=== PATIENT | male | born 1955 | race Caucasian/White ===

== ENCOUNTER → 2022-09-30 09:53 | Outpatient (BNVA) | payer MEDICARE, SELFPAY | PROVIDERS: PCP Internal Medicine; Visit Provider Nurse Practitioner Family | DX: F07.81 Postconcussional syndrome (principal); F09 Unspecified mental disorder due to known physiological condition; R51.9 Headache, unspecified; R42 Dizziness and giddiness | CPT/HCPCS: 99202 ==

== ENCOUNTER → 2022-12-28 11:02 | Outpatient (BNVA) | payer MEDICARE, SELFPAY | PROVIDERS: PCP Internal Medicine; Visit Provider Nurse Practitioner Family | DX: R51.9 Headache, unspecified (principal); R42 Dizziness and giddiness | CPT/HCPCS: 99212 ==

== ENCOUNTER → 2023-01-05 09:45 | Outpatient (BNVA) | payer MEDICARE, SELFPAY | PROVIDERS: PCP Internal Medicine; Visit Provider Surgery | DX: R51.9 Headache, unspecified (principal); D17.0 Benign lipomatous neoplasm of skin and subcutaneous tissue of head, face and neck | CPT/HCPCS: 99202 ==

== ENCOUNTER 2023-02-17 10:26 | Outpatient (REF) | payer MEDICARE, SELFPAY ==
--- NOTE | ~2023-02-17 | MR_ITS ---
EXAMINATION: MR angio head wo con, MR head/brain wo/w con CLINICAL INFORMATION: Giant cell arteritis COMPARISON: Outside MRI of the brain without contrast 07/05/2022 TECHNIQUE: Multiplanar multisequence MR imaging of the brain was obtained without and following the administration of 10 mL Gadavist intravenous contrast. Noncontrast [id number] MRA of the head was also performed. FINDINGS: There is no acute infarct on diffusion-weighted imaging. There is no intracranial hemorrhage on iron-sensitive imaging. No extra-axial collection or mass effect/herniation. Patchy periventricular, deep white matter, and brainstem T2 FLAIR hyperintensities consistent with moderate underlying microangiopathy. No hydrocephalus. Mild generalized cerebral volume loss with commensurate sulcal and ventricular prominence. No abnormal parenchymal or extra-axial enhancement. The major flow voids at the skull base are preserved. The midline structures are normal. The cerebellar tonsils are normally positioned. 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 Slight malalignment of the right atlantooccipital joint with posterior subluxation of the condyle relative to the C1 lateral mass, likely reflecting mild rotary subluxation. Marrow signal is within normal limits. T1 hyperintense lesion measuring up to 1.6 cm involving the subgaleal soft tissues of the left lateral supraorbital region (series 7 image 16) with saturation on fat saturated sequence. No signal abnormality within the paranasal sinuses or within the mastoid air cells. Normal flow-related signal within the anterior circulation without evidence of focal stenosis or occlusion of the intradural internal carotid, middle cerebral, or anterior cerebral arteries. Normal flow-related signal within the posterior circulation without evidence of focal stenosis or occlusion of the intradural vertebral, basilar, superior cerebellar, or posterior cerebral arteries. configuration of the right PATCH SANDER complex. No demonstrated intradural aneurysms. MR/MR head/brain wo/w con IMPRESSION: 1. No acute intracranial abnormality or abnormal intracranial enhancement. 2. Moderate chronic white matter microangiopathy and mild generalized cerebral volume loss. 3. Normal MRA of the brain. 4. Left supraorbital soft tissue lesion measuring up to 1.6 cm compatible with a lipoma 5. 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
--- NOTE | ~2023-02-17 | MR_ITS ---
EXAMINATION: MR angio head wo con, MR head/brain wo/w con CLINICAL INFORMATION: Giant cell arteritis COMPARISON: Outside MRI of the brain without contrast 07/05/2022 TECHNIQUE: Multiplanar multisequence MR imaging of the brain was obtained without and following the administration of 10 mL Gadavist intravenous contrast. Noncontrast [id number] MRA of the head was also performed. FINDINGS: There is no acute infarct on diffusion-weighted imaging. There is no intracranial hemorrhage on iron-sensitive imaging. No extra-axial collection or mass effect/herniation. Patchy periventricular, deep white matter, and brainstem T2 FLAIR hyperintensities consistent with moderate underlying microangiopathy. No hydrocephalus. Mild generalized cerebral volume loss with commensurate sulcal and ventricular prominence. No abnormal parenchymal or extra-axial enhancement. The major flow voids at the skull base are preserved. The midline structures are normal. The cerebellar tonsils are normally positioned. 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 Slight malalignment of the right atlantooccipital joint with posterior subluxation of the condyle relative to the C1 lateral mass, likely reflecting mild rotary subluxation. Marrow signal is within normal limits. T1 hyperintense lesion measuring up to 1.6 cm involving the subgaleal soft tissues of the left lateral supraorbital region (series 7 image 16) with saturation on fat saturated sequence. No signal abnormality within the paranasal sinuses or within the mastoid air cells. Normal flow-related signal within the anterior circulation without evidence of focal stenosis or occlusion of the intradural internal carotid, middle cerebral, or anterior cerebral arteries. Normal flow-related signal within the posterior circulation without evidence of focal stenosis or occlusion of the intradural vertebral, basilar, superior cerebellar, or posterior cerebral arteries. configuration of the right STATION MECHANIC complex. No demonstrated intradural aneurysms. MR/MR angio head wo con IMPRESSION: 1. No acute intracranial abnormality or abnormal intracranial enhancement. 2. Moderate chronic white matter microangiopathy and mild generalized cerebral volume loss. 3. Normal MRA of the brain. 4. Left supraorbital soft tissue lesion measuring up to 1.6 cm compatible with a lipoma 5. 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
== END 2023-02-17 10:27 | disposition home or self-care (01) ==
LOC: HO.MRI 10:26
PROVIDERS: PCP Internal Medicine; Visit Provider Nurse Practitioner Family
DX: M31.6 Other giant cell arteritis (principal)
CPT/HCPCS: 70544; 70553; A9585

== ENCOUNTER 2023-04-13 13:00 | Outpatient (AMB) | payer MEDICARE, SELFPAY ==
--- NOTE | 2023-04-13 13:06 | MHC.OFFVIS ---
Intake Vital Signs 04/13/23 13:07 Height 5 ft 10 in Weight 215 lb BMI 30.8 BP 138/80 Blood Pressure Location Rt brachial Position Sitting Pulse 82 Pulse Source Pulse Oximeter Pulse Oximetry (%) 97 Oxygen Delivery Method Room Air Intake Visit Reasons: 3m follow up Headaches-Confirmed Intake Note: patient presents for follow up headaches. patient states still have them but not as severe. more on the right side, same area over my eyes and across the right side. Allergies No Known Allergies Allergy (Verified 04/13/23 13:10) Medication List - Last Reconciled 04/13/23 by OBDULIA Guadarrama acetaminophen (Tylenol Extra Strength) 500 mg PO Q6H PRN aspirin (Jennifer Low Dose Aspirin) 81 mg PO DAILY atorvastatin 10 mg PO DAILY hydrochlorothiazide 25 mg PO DAILY lisinopril 30 mg PO DAILY HPI HPI Comments History of Present Illness Details 67-yr-old male presents for f/u visit, accompanied by his . Pt reports his right frontal headache is much better. He does still have a milder headache. May need to take a Tylenol qd- bid. The left forehead lipoma is no longer bothersome. Today he reports has had 4 episodes of the last 2 yrs. The last occurring yesterday. He has taken 2-3 puffs of marijuana while sitting, when all of a sudden, he stares off, turns flushed, becomes non-responsive but no LOC, like he is frozen. 3/4 of the episodes have been a/w urinary incontinence. The episode lasts 4-5 minutes. Afterwards, he has some difficulty speaking x's 5-7 minutes. Then the rest of the day and the following day he feels drained. Yesterday, they called the ambulance- his vitals were NL, orthostatics were NL, so he stayed home. He previously did have an ER eval afetr the episode and work-up was normal. He believes the episodes have been triggered by increased stress- for instance this past week, he found out 2 of his friends are on hospice and was discussing this with a friend when the episode happened. He usually smokes marijuana 2 hits 3-4 times a day for management of chronic pain. MR/MR head/brain wo/w con and MRA head: IMPRESSION: 1. No acute intracranial abnormality or abnormal intracranial enhancement. 2. Moderate chronic white matter microangiopathy and mild generalized cerebral volume loss. 3. Normal MRA of the brain. 4. Left supraorbital soft tissue lesion measuring up to 1.6 cm compatible with a lipoma 5. 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 [facility] Medical History (Updated 04/16/23 @ 20:48 by OBDULIA Guadarrama) Lipoma of forehead Surgical History H/O angioplasty History of toe surgery H/O wrist surgery History of shoulder surgery Family History Mother Myocardial infarction Pacemaker Father Hypertension Prostate cancer Social History Alcohol intake: current Alcohol intake frequency: a few times a month Patient Tobacco Use Status: Current everyday Tobacco user Substance Use Type: Marijuana Review of Systems Const All systems reviewed & are unremarkable except as noted in HPI and below Physical Exam Vital Signs: Last Vital Signs Pulse 82 04/13/23 13:07 BP 138/80 04/13/23 13:07 Pulse Ox 97 04/13/23 13:07 Oxygen Delivery Method Room Air 04/13/23 13:07 BMI result Body Mass Index 30.8 Const General: cooperative and no acute distress Orientation/consciousness: patient oriented x3 HEENT Head: Yes normocephalic Resp Effort & Inspection: normal respiratory effort and able to speak in complete sentences Neuro General: patient oriented x3, gait normal and CN's II-XI intact bilaterally Cognition (Neuro): normal cognition Motor exam (neuro): 5/5 motor strength present throughout Psych Appearance: grossly normal Mental Status: mental status grossly normal Speech and movement: Normal speech and movement present Affect: normal affect Attitude: cooperative Thought process: Normal thought process present Thought content: Normal thought content present Insight: Good insight present (Psych) Judgement: Good judgement present (Psych) Assessment & Plan Assessment & Plan (1) Altered mental status: Code(s): R41.82 - Altered mental status, unspecified (2) Postconcussive syndrome: Comment: a/w headache, photophobia, dizziness, cognitive difficulties, and mood changes Code(s): F07.81 - Postconcussional syndrome Plan For post-concussive syndrome: May use Tylenol prn. For episodes of transient AMS a/w urinary incontinence and postictal fatigue: Reviewed brain MRI- Moderate chronic white matter microangiopathy and mild generalized cerebral volume loss. Check EEG to assess for any signs of cerebral epileptic activity or cerebral irritability. Will request cardiology evaluation through pt's cardiology office. In the mean time, pt is advised to NOT drive or engage in high risk activities, such as climbing ladders, water activities, etc. f/u upon review of above and in clinic in 3 months or sooner prn. Orders: Orders EEG electroencephalogram Today R41.82 - Altered mental status, unspecified Referrals Cardiology Referral R41.82 - Altered mental status, unspecified Coding Level of Care Code Est Pt Level 4 (52324) Diagnoses Altered mental status R41.82 Postconcussive syndrome F07.81
[2023-04-13 13:07] VITALS: BP 138/80; PULSE 82; O2SAT 97; BMI 30.8
== END 2023-04-13 14:01 | disposition home or self-care (01) ==
PROVIDERS: PCP Internal Medicine; Visit Provider Nurse Practitioner Family
DX: R41.82 Altered mental status, unspecified (principal); F07.81 Postconcussional syndrome
CPT/HCPCS: 99214

== ENCOUNTER → 2023-04-13 13:00 | Outpatient (BNVA) | payer MEDICARE, SELFPAY | PROVIDERS: PCP Internal Medicine; Visit Provider Nurse Practitioner Family | DX: R41.82 Altered mental status, unspecified (principal); F07.81 Postconcussional syndrome | CPT/HCPCS: 99212 ==

== ENCOUNTER 2023-07-27 11:30 | Outpatient (AMB) | payer MEDICARE, SELFPAY ==
--- NOTE | 2023-07-27 11:37 | MHC.OFFVIS ---
Intake Vital Signs 07/27/23 11:46 BP 116/82 Blood Pressure Location Rt brachial Position Sitting Pulse 74 Pulse Source Pulse Oximeter Pulse Oximetry (%) 98 Oxygen Delivery Method Room Air Intake Visit Reasons: 4 mnts f/u appt-LVM Intake Note: Patient presents for 4 month follow up. he did a three day eeg he's here for the results Allergies No Known Allergies Allergy (Verified 07/27/23 11:44) HPI HPI Comments History of Present Illness Details 68-yr-old male presents for f/u visit, accompanied by his . Pt denies any significant interval medical changes. He has not had a syncopal event since May. He has not had an significant stressors since then. He has not smoked marijuana- except briefly during the EEG to see if that would evoke an attack. The EEG was normal- even during the time when he did smoke marijuana. He still can have head numbness. He is worried if any of his issues will increase his risk for dementia as his father had dementia. [facility] Medical History (Updated 06/28/23 @ 19:08 by OBDULIA Guadarrama) Lipoma of forehead Surgical History H/O angioplasty History of toe surgery H/O wrist surgery History of shoulder surgery Family History Mother Myocardial infarction Pacemaker Father Hypertension Prostate cancer Social History Alcohol intake: current Alcohol intake frequency: a few times a month Patient Tobacco Use Status: Current everyday Tobacco user Substance Use Type: Marijuana Review of Systems Const All systems reviewed & are unremarkable except as noted in HPI and below Physical Exam Vital Signs: Last Vital Signs Pulse 74 07/27/23 11:46 BP 116/82 07/27/23 11:46 Pulse Ox 98 07/27/23 11:46 Oxygen Delivery Method Room Air 07/27/23 11:46 Const General: cooperative and no acute distress Orientation/consciousness: patient oriented x3 HEENT Head: Yes normocephalic Resp Effort & Inspection: normal respiratory effort and able to speak in complete sentences Neuro General: patient oriented x3, gait normal and CN's II-XI intact bilaterally Cognition (Neuro): normal cognition Motor exam (neuro): 5/5 motor strength present throughout Psych Appearance: grossly normal Mental Status: mental status grossly normal Speech and movement: Normal speech and movement present Affect: normal affect Attitude: cooperative Thought process: Normal thought process present Thought content: Normal thought content present Insight: Good insight present (Psych) Judgement: Good judgement present (Psych) Assessment & Plan Assessment & Plan (1) Postconcussive syndrome: Comment: a/w headache, photophobia, dizziness, cognitive difficulties, and mood changes Code(s): F07.81 - Postconcussional syndrome (2) Syncope: Code(s): R55 - Syncope and collapse (3) Altered mental status: Code(s): R41.82 - Altered mental status, unspecified (4) Headache: Code(s): R51.9 - Headache, unspecified Plan For post-concussive syndrome: May use Tylenol prn. ? For episodes of transient AMS a/w urinary incontinence and postictal fatigue: Brain MRI- Moderate chronic white matter microangiopathy and mild generalized cerebral volume loss. Baseline and 72 hr ambulatory EEG- no epileptic avtivity observed. Reviewed cardiology eval- did not feel that these episodes were cardiogenic. Discussed that although the EEGs have been normal, it is possible that these syncopal episodes can still be seizure activity- likely provoked by significant life stressor and associated lack of sleep. Pt would like to try continue to abstain from marijuana as he feels it could have triggered these attacks. I am less suspicious that the marijuana use is triggering these attacks- more likely it is coincidence that when stressed he has used marijuana as a coping strategy. Also encouraged pt to consider psychotherapy or finding alternative coping strategies for stress management. Discussed that if he has another episode, he should trial AED tx. He will update me w/ any new/worrisome s/s. Discussed that he should NOT drive or engage in high risk activities x's 6 months after any syncopal events, such as climbing ladders, water activities, etc. ? f/u in 3 months or sooner prn. Coding Level of Care Code Est Pt Level 4 (38701) Diagnoses Postconcussive syndrome F07.81 Syncope R55 Altered mental status R41.82 Headache R51.9
[2023-07-27 11:46] VITALS: BP 116/82; PULSE 74; O2SAT 98
== END 2023-07-27 12:28 | disposition home or self-care (01) ==
PROVIDERS: PCP Internal Medicine; Visit Provider Nurse Practitioner Family
DX: G44.309 Post-traumatic headache, unspecified, not intractable (principal); F07.81 Postconcussional syndrome; R55 Syncope and collapse; R41.82 Altered mental status, unspecified
CPT/HCPCS: 99214

== ENCOUNTER → 2023-07-27 11:30 | Outpatient (BNVA) | payer MEDICARE, SELFPAY | PROVIDERS: PCP Internal Medicine; Visit Provider Nurse Practitioner Family | DX: F07.81 Postconcussional syndrome (principal); R55 Syncope and collapse; R41.82 Altered mental status, unspecified; R51.9 Headache, unspecified | CPT/HCPCS: 99212 ==

== ENCOUNTER 2024-05-16 13:48 | Outpatient (REF) | payer MEDICARE, SELFPAY ==
--- NOTE | ~2024-05-16 | CT_ITS ---
EXAMINATION: CT HEAD WITHOUT CONTRAST CLINICAL INFORMATION: Concussion with loss of consciousness. COMPARISON: No prior CT exam. MRI head 02/17/2023. TECHNIQUE: Contiguous axial imaging was performed from the skull base to vertex without intravenous administration of contrast. This CT examination was performed using dose optimization techniques as appropriate, variously including the following: *Automated exposure control *Adjustment of mA and/or kV according to patient size (this includes techniques or standardized protocols for targeted exams where dose is matched to indication/reason for exam; i.e. extremities or head) *Use of iterative reconstruction technique DLP: 890 mGy-cm FINDINGS: There is no evidence of intracranial hemorrhage or extra-axial fluid collection. There is no mass effect, or edema. No CT evidence of acute territorial infarct. Ventricles, sulci, and cisterns are mildly diffusely prominent, consistent with age appropriate involutional changes. No hydrocephalus. No midline shift. Several old lacunar type infarcts present in the bilateral gangliocapsular regions. Mild to moderate diffuse and patchy hypodensities in the supratentorial white matter, consistent with [id number] small vessel ischemic changes. Normal sella. Atheromatous calcification of the bilateral carotid siphons and V4 segments vertebral arteries bilaterally. Venous sinuses are mildly hyperattenuating, likely reflecting hemoconcentration. Globes and orbital contents image normally. Extra cranial soft tissues demonstrate a small supraorbital left scalp lipoma. They are otherwise normal. The paranasal sinuses, mastoid air cells, and tympanic cavities are normally aerated. No fractures or suspicious bony abnormalities. Mild rotatory subluxation C1-C2 again noted. CT/CT head/brain wo IV con IMPRESSION: 1. No acute intracranial abnormalities. 2. Age-related involutional changes, and mild to moderate changes of small vessel ischemia. 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 3. Mild rotatory subluxation C1-2 again noted. Electronically signed by: Genaro Box MD 05/31/2024 12:53 PM [facility]
== END 2024-05-16 13:49 | disposition home or self-care (01) ==
LOC: HO.CT 13:48
PROVIDERS: PCP Internal Medicine; Visit Provider Nurse Practitioner Family
DX: S06.0XAA Concussion with loss of consciousness status unknown, initial encounter (principal)
CPT/HCPCS: 70450

== ENCOUNTER → 2024-05-16 14:26 | Outpatient (BNV) | payer MEDICARE, SELFPAY | PROVIDERS: PCP Internal Medicine; Visit Provider Radiology Diagnostic Radiology | DX: S06.0XAA Concussion with loss of consciousness status unknown, initial encounter (principal) | CPT/HCPCS: 70450 ==

== ENCOUNTER 2024-06-07 14:22 | Outpatient (AMB) | payer MEDICARE, SELFPAY ==
--- NOTE | 2024-06-07 14:23 | A.OFFVIS_ITS ---
Vital Signs 06/07/24 14:24 Height 5 ft 10 in Weight 224 lb BMI 32.1 BP 132/72 Blood Pressure Location Rt brachial Position Sitting Intake Visit Reasons: f/u due to pt feeling exhausted & disoriented Intake Note: Patient presents for follow up. patient fell again,lost his balance. Allergies No Known Allergies Allergy (Verified 06/07/24 14:26) HPI Comments Details: Right-handed 68-yr-old male presents for f/u urgent visit, accompanied by his . Pt reports he had been doing better, his energy, concentration was better following the concussion fro the fall in Mar 2022. Then on Apr 042023, he had a fall where he was bending over and tripped on his feet, causing him to fall and roll over- strike his left temporal region, right shoulder. He denies LOC, but could not get up x's 15 minutes or so. Since, he has had headaches- which he states he is managing ok w/ Tylenol bid prn. We did have pt undergo head CT w/o- which did not show any active bleeds. He is more concerned that he is having more cognitive difficulties, difficulty concentrating, fatigue/poor endurance. He feels that he cannot complete his usual daily activities without being exhausted and confused. He notes that he is easily distracted- say in the morning when he making his coffee, if the cat distracts him- he feeds the cat but then forgets to put the water in his case maker. He has also noticed since the fall, for the 1st hour after waking up, he will notice a RUE tremor when drinking his coffee but then it subsides. He has a h/o cervical tightness and crepitus when turning his head- started after the Mar 2022 fall/concussion. He has a h/o bilateral carpal tunnel repair. Denies hand numbness/tingling. He has not had a syncopal event since May 2023- notes he has stopped smoking marijuana. CT/CT head/brain wo IV con IMPRESSION: 1. No acute intracranial abnormalities. 2. Age-related involutional changes, and mild to moderate changes of small vessel ischemia. 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 Atheromatous calcification of the bilateral carotid siphons and V4 segments vertebral arteries bilaterally. 3. Mild rotatory subluxation C1-2 again noted. [facility] Medical History Lipoma of forehead Surgical History H/O angioplasty History of toe surgery H/O wrist surgery History of shoulder surgery Family History Mother Myocardial infarction Pacemaker Father Hypertension Prostate cancer Social History Alcohol intake: current Alcohol intake frequency: a few times a month Patient Tobacco Use Status: Current everyday Tobacco user Substance Use Type: Marijuana Physical Exam Vital Signs: Last Vital Signs BP 132/72 06/07/24 14:24 BMI result Body Mass Index 32.1 Const General: cooperative and no acute distress Orientation/consciousness: patient oriented x3 HEENT Head: Yes normocephalic Resp Effort & Inspection: normal respiratory effort and able to speak in complete sentences Neuro Other: Photophobic No visible rest tremor. General: patient oriented x3, gait normal and CN's II-XI intact bilaterally Cranial nerves: Yes CN's II-XII intact bilaterally Cognition (Neuro): normal cognition Motor exam (neuro): 5/5 motor strength present throughout Coordination: [id number] test normal Psych Appearance: grossly normal Mental Status: mental status grossly normal Speech and movement: Normal speech and movement present Affect: normal affect Attitude: cooperative Thought process: Normal thought process present Thought content: Normal thought content present Insight: Good insight present (Psych) Judgement: Good judgement present (Psych) Assessment & Plan Assessment & Plan (1) Concussion: Comment: s/p fall on Apr 042023- w/ residual fatigue, cognitive difficulties, am tremor Code(s): S06.0XAA - Concussion with loss of consciousness status unknown, initial encounter Category: Medical (2) Syncope: Code(s): R55 - Syncope and collapse Category: Medical (3) Altered mental status: Code(s): R41.82 - Altered mental status, unspecified Category: Medical (4) Headache: Code(s): R51.9 - Headache, unspecified Category: Medical Plan Reviewed recent head CT- No acute findings. 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 Atheromatous calcification of the bilateral carotid siphons and V4 segments vertebral arteries bilaterally. Stable Mild rotatory subluxation C1-2 again noted. Pt advsied to undergo f/u MR angio head w/o and neck w/wo to better appreciate burden of carotid and vertebral atherosclerosis burden in setting of gangliocapsular lacunar infarcts. Continue ASA, statin, lisinopril, HCTZ- BP normotensive. Futire considerations- sleep eval, cognitive tx. Monitor am tremor For new concussive syndrome: Resume Riboflavin 400mg qam Resume Magnesium- will try glycinate formulation at 200mg qhs- to minimize GI s/e's pt previously had w/ Mag Oxide 400mg qhs dose. May use Tylenol prn. ? For episodes of transient AMS a/w urinary incontinence and postictal fatigue: No further episodes since stopping marijuana. Will monitor. Brain MRI- Moderate chronic white matter microangiopathy and mild generalized cerebral volume loss. Baseline and 72 hr ambulatory EEG- no epileptic activity observed. Reviewed cardiology eval- did not feel that these episodes were cardiogenic. ? f/u in 1-2 months or sooner prn. Orders: Orders MR angio head wo con 06/07/24 I63.81 - Other cerebral infarction due to occlusion or stenosis of small artery MR angio neck wo/w con 06/07/24 I63.81 - Other cerebral infarction due to occlusion or stenosis of small artery Medications: New riboflavin (vitamin B2) 400 mg PO DAILY 30 days 30 tabs 6RF magnesium glycinate 100 - 200 mg (1 - 2 x 100 mg magnesium) PO BEDTIME 30 days 60 caps 0RF Coding Level of Care Code Est Pt Level 4 (02842) Diagnoses Concussion S06.0XAA Syncope R55 Altered mental status R41.82 Headache R51.9
[2024-06-07 14:24] VITALS: BP 132/72; BMI 32.1
== END 2024-06-07 15:26 | disposition home or self-care (01) ==
PROVIDERS: PCP Internal Medicine; Visit Provider Nurse Practitioner Family
DX: S06.0XAA Concussion with loss of consciousness status unknown, initial encounter (principal); R55 Syncope and collapse; R41.82 Altered mental status, unspecified; R51.9 Headache, unspecified
CPT/HCPCS: 99214

== ENCOUNTER → 2024-06-07 14:22 | Outpatient (BNVA) | payer MEDICARE, SELFPAY | PROVIDERS: PCP Internal Medicine; Visit Provider Nurse Practitioner Family | DX: S06.0XAD Concussion with loss of consciousness status unknown, subsequent encounter (principal); R55 Syncope and collapse; R41.82 Altered mental status, unspecified; R51.9 Headache, unspecified | CPT/HCPCS: 99212 ==

== ENCOUNTER 2024-07-09 09:46 | Outpatient (AMB) | payer MEDICARE, SELFPAY ==
--- NOTE | 2024-07-09 09:46 | A.OFFVIS_ITS ---
Intake Visit Reasons: 1mo Follow Up -Facetime Intake Note: Patient presents for follow up. Allergies No Known Allergies Allergy (Verified 07/09/24 09:47) Medication List - Last Reconciled 07/09/24 by OBDULIA Guadarrama acetaminophen (Tylenol Extra Strength) 500 mg PO Q6H PRN aspirin (Jennifer Low Dose Aspirin) 81 mg PO DAILY atorvastatin 20 mg PO DAILY hydrochlorothiazide 25 mg PO DAILY lisinopril 30 mg PO DAILY magnesium glycinate 100 - 200 mg (1 - 2 x 100 mg magnesium) PO BEDTIME 30 days riboflavin (vitamin B2) 400 mg PO DAILY 30 days HPI Comments Details: Right-handed 68-yr-old male presents for f/u telephone visit for concussion, accompanied by his . Visit conducted via telephone, as patient and could not utilize [employer] technology today. 06/27/2024 head MRA: MR angiogram of the [place]- normal. T2 signal abnormality in the brainstem and supratentorial white matter suggestive of chronic microvascular ischemic disease. 06/27/2024 cervical MRA: Attenuated appearance of both vertebral artery origins, likely motion artifact but steady can not exclude origin stenosis. Left vertebral artery is dominant. Mild luminal irregularity of both carotids b ut no hemodynamically significant stenosis or occlusion. Pt reports that he had a massage after the last visit, this helped to resolve the headache and fogginess x's 6 days. 5-6 days after the massage, he did have one day were he had 3 bouts of vertigo- he did his vestibular exercise and this help the vertigo. Then on his 6th day following the massage, the headache and fogginess returned. He is still feeling very tired and foggy-headed. He is again using Tylenol prn- with some effect. He is taking Mag gummies. He is not taking the riboflavin, as it previously caused loose stools. He reports a h/o a h/o in-lab 10 yrs ago- showed snoring w/o sleep apnea. He is not interested in undergoing follow-up sleep study at this time. 06/07/2024 HPI: Pt reports he had been doing better, his energy, concentration was better following the concussion fro the fall in Mar 2022. Then on Apr 042023, he had a fall where he was bending over and tripped on his feet, causing him to fall and roll over- strike his left temporal region, right shoulder. He denies LOC, but could not get up x's 15 minutes or so. Since, he has had headaches- which he states he is managing ok w/ Tylenol bid prn. We did have pt undergo head CT w/o- which did not show any active bleeds. He is more concerned that he is having more cognitive difficulties, difficulty concentrating, fatigue/poor endurance. He feels that he cannot complete his usual daily activities without being exhausted and confused. He notes that he is easily distracted- say in the morning when he making his coffee, if the cat distracts him- he feeds the cat but then forgets to put the water in his iron plastic bullet maker. He has also noticed since the fall, for the 1st hour after waking up, he will notice a RUE tremor when drinking his coffee but then it subsides. He has a h/o cervical tightness and crepitus when turning his head- started after the Mar 2022 fall/concussion. He has a h/o bilateral carpal tunnel repair. Denies hand numbness/tingling. He has not had a syncopal event since May 2023- notes he has stopped smoking marijuana. CT/CT head/brain wo IV con IMPRESSION: 1. No acute intracranial abnormalities. 2. Age-related involutional changes, and mild to moderate changes of small vessel ischemia. 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 Atheromatous calcification of the bilateral carotid siphons and V4 segments vertebral arteries bilaterally. 3. Mild rotatory subluxation C1-2 again noted. [facility] Medical History Lipoma of forehead Surgical History H/O angioplasty History of toe surgery H/O wrist surgery History of shoulder surgery Family History Mother Myocardial infarction Pacemaker Father Hypertension Prostate cancer Social History Alcohol intake: current Alcohol intake frequency: a few times a month Patient Tobacco Use Status: Current everyday Tobacco user Substance Use Type: Marijuana Physical Exam Const General: cooperative and no acute distress Orientation/consciousness: patient oriented x3 Resp Effort & Inspection: normal respiratory effort and able to speak in complete sentences Neuro General: patient oriented x3 Psych Mental Status: mental status grossly normal Attitude: cooperative Thought process: Normal thought process present Thought content: Normal thought content present Insight: Good insight present (Psych) Judgement: Good judgement present (Psych) Telehealth Telehealth Telehealth Platform: Telephone Location of provider rendering services: practice address Location of patient: address on file Patient Identification confirmed using: Name, : Yes Telehealth method: voice only Patient verbally consented to treatment: Yes Patient verbally consented to billing insurance company: Yes Patient informed of any privacy concerns related to visit: Yes Minutes spent on Phone/Video with Pt.: 25 Assessment & Plan Assessment & Plan (1) Concussion: Comment: s/p fall on Apr 042023- w/ residual fatigue, cognitive difficulties, am tremor Code(s): S06.0XAA - Concussion with loss of consciousness status unknown, initial e ncounter Category: Medical (2) Syncope: Code(s): R55 - Syncope and collapse Category: Medical (3) Altered mental status: Code(s): R41.82 - Altered mental status, unspecified Category: Medical (4) Migraine without aura: Comment: Postconcussive Code(s): G43.009 - Migraine without aura, not intractable, without status migrainosus Category: Medical Plan Reviewed head and cervical MRA: No hemodynamically significant stenosis within bilateral carotid, [place], vertebral arteries. Continue ASA, statin, lisinopril, HCTZ- BP normotensive. Discussed ordering follow-up in-lab sleep study, however patient declines at this time. Future considerations- sleep eval, cognitive tx. Monitor am tremor For new concussive syndrome w/ migraine headache phenotype: For prevention: Hold Riboflavin 400mg qam- patient states this causes loose stools. Continue OTC magnesium gummies. Continue lisinopril as ordered for HTN. For acute migraine treatment: May use Tylenol prn. Trial Ubrogepant (Ubrelvy) 100mg tab, 1/2 - 1 tab (50-100mg) at onset of headache, may repeat in 2 hours. Max of 2 tabs (200mg) per 24 hours. May adjunct with OTC Tylenol 650-1000mg q 4 hours prn. Potential adverse effects, include but are not limited to fatigue, nausea, dry mouth, constipation. Acute migraine treatment contraindications: All triptans and DHE due to HTN, HLD, history of lacunar infarcts. ? For episodes of transient AMS a/w urinary incontinence and postictal fatigue: No further episodes since stopping marijuana. Will monitor. Brain MRI- Moderate chronic white matter microangiopathy and mild generalized cerebral volume loss. Baseline and 72 hr ambulatory EEG- no epileptic activity observed. Reviewed cardiology eval- did not feel that these episodes were cardiogenic. ? f/u in 3 months or sooner prn. Medications: New ubrogepant (Ubrelvy) take at onset of migraine, may repeat in 2hrs (may take w/ Tylenol) 50 - 100 mg (0.5 - 1 x 100 mg) PO ONCE 30 days PRN 16 tabs 3RF migraine headache Coding Level of Care Code Tele Est Pt Level 4 (67958) Diagnoses Concussion S06.0XAA Syncope R55 Altered mental status R41.82 Migraine without aura G43.009
== END 2024-07-12 08:47 | disposition home or self-care (01) ==
LOC: HO.HSMS 09:46
PROVIDERS: PCP Internal Medicine; Visit Provider Nurse Practitioner Family
DX: S06.0XAA Concussion with loss of consciousness status unknown, initial encounter (principal); R55 Syncope and collapse; R41.82 Altered mental status, unspecified; G43.009 Migraine without aura, not intractable, without status migrainosus
CPT/HCPCS: 99443

== ENCOUNTER 2025-04-10 13:27 | Outpatient (AMB) | payer MEDICARE, SELFPAY ==
--- NOTE | 2025-04-10 13:32 | A.OFFVIS_ITS ---
Vital Signs 04/10/25 13:33 Height 5 ft 10 in Weight 218 lb BMI 31.3 BP 140/80 H Blood Pressure Location Rt brachial Position Sitting Pulse 92 Pulse Source Pulse Oximeter Pulse Oximetry (%) 94 Oxygen Delivery Method Room Air Intake Visit Reasons: Follow up Intake Note: Patient presents for follow up. 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 Patient reports a few months ago, he had repeated falls when he bent over to say feed the cats or bending over to pick something up. He states once he started to fall forward, He states he did not have LOC, but during these falls he did have strike his head several times. During this time, he was having more headaches, which have improved. Someties he wakes up feeling like his forehead is numb. He states he could use another pillow- he sleeps on his side. He states that he thinks these falls were triggered by being started on esitalopram 5mg daily, as these falls stopped within 3 days of stopping it. He does not want to retry another anti-anxiety emdication. Is using Zyquil for sleep 1-2 nights per week, as he may wake up thinking about his ongoing to do list. He is using Ibuprofen prn. Not needing to take Ubrelvy any longer. He does notes that he receently had GI upset for a few days, and then has had no urge to drink alcohol in the last 4-5 days, but he has no signs of DTs . He states he usually drinks a sleeve of nips a day (equivalent of 500ml), starting at 11am through bedtime. He is not driving too far, as his mind can wander if he is driving further. 07/09/2024, previous HPI: 06/27/2024 head MRA: MR angiogram of the [place]- normal. T2 signal abnormality in the brainstem and supratentorial white matter suggestive of chronic microvascular ischemic disease. 06/27/2024 cervical MRA: Attenuated appearance of both vertebral artery origins, likely motion artifact but steady can not exclude origin stenosis. Left vertebral artery is dominant. Mild luminal irregularity of both carotids but no hemodynamically significant stenosis or occlusion. Pt reports that he had a massage after the last visit, this helped to resolve the headache and fogginess x's 6 days. 5-6 days after the massage, he did have one day were he had 3 bouts of vertigo- he did his vestibular exercise and this help the vertigo. Then on his 6th day following the massage, the headache and fogginess returned. He is still feeling very tired and foggy-headed. He is again using Tylenol prn- with some effect. He is taking Mag gummies. He is not taking the riboflavin, as it previously caused loose stools. He reports a h/o a h/o in-lab 10 yrs ago- showed snoring w/o sleep apnea. He is not interested in undergoing follow-up sleep study at this time. 06/07/2024 HPI: Pt reports he had been doing better, his energy, concentration was better following the concussion fro the fall in Mar 2022. Then on Apr 042023, he had a fall where he was bending over and tripped on his feet, causing him to fall and roll over- strike his left temporal region, right shoulder. He denies LOC, but could not get up x's 15 minutes or so. Since, he has had headaches- which he states he is managing ok w/ Tylenol bid prn. We did have pt undergo head CT w/o- which did not show any active bleeds. He is more concerned that he is having more cognitive difficulties, difficulty concentrating, fatigue/poor endurance. He feels that he cannot complete his usual daily activities without being exhausted and confused. He notes that he is easily distracted- say in the morning when he making his coffee, if the cat distracts him- he feeds the cat but then forgets to put the water in his lacquer maker. He has also noticed since the fall, for the 1st hour after waking up, he will notice a RUE tremor when drinking his coffee but then it subsides. He has a h/o cervical tightness and crepitus when turning his head- started after the Mar 2022 fall/concussion. He has a h/o bilateral carpal tunnel repair. Denies hand numbness/tingling. He has not had a syncopal event since May 2023- notes he has stopped smoking marijuana. CT/CT head/brain wo IV con IMPRESSION: 1. No acute intracranial abnormalities. 2. Age-related involutional changes, and mild to moderate changes of small vessel ischemia. 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 Atheromatous calcification of the bilateral carotid siphons and V4 segments vertebral arteries bilaterally. 3. Mild rotatory subluxation C1-2 again noted. [facility] Medical History Lipoma of forehead Surgical History H/O angioplasty History of toe surgery H/O wrist surgery History of shoulder surgery Family History Mother Myocardial infarction Pacemaker Father Hypertension Prostate cancer Social History Alcohol intake: current Alcohol intake frequency: a few times a month Patient Tobacco Use Status: Current everyday Tobacco user Substance Use Type: Marijuana Physical Exam Vital Signs: Last Vital Signs Pulse 92 04/10/25 13:33 BP 140/80 H 04/10/25 13:33 Pulse Ox 94 04/10/25 13:33 Oxygen Delivery Method Room Air 04/10/25 13:33 BMI result Body Mass Index 31.3 Const General: cooperative and no acute distress Orientation/consciousness: patient oriented x3 Resp Effort & Inspection: normal respiratory effort and able to speak in complete sentences Neuro General: patient oriented x3 Psych Mental Status: mental status grossly normal Attitude: cooperative Thought process: Normal thought process present Thought content: Normal thought content present Insight: Good insight present (Psych) Judgement: Good judgement present (Psych) Telehealth Telehealth Telehealth Platform: Telephone Location of provider rendering services: practice address Location of patient: address on file Patient Identification confirmed using: Name, : Yes Telehealth method: voice only Patient verbally consented to treatment: Yes Patient verbally consented to billing insurance company: Yes Patient informed of any privacy concerns related to visit: Yes Minutes spent on Phone/Video with Pt.: 25 Assessment & Plan Assessment & Plan (1) Concussion: Comment: s/p fall on Apr 042023- w/ residual fatigue, cognitive difficulties, am tremor Code(s): S06.0XAA - Concussion with loss of consciousness status unknown, initial encou nter Category: Medical Qualifiers: Encounter type: sequela (2) Migraine without aura: Comment: Postconcussive Code(s): G43.009 - Migraine without aura, not intractable, without status migrainosus Category: Medical Qualifiers: Status migrainosus presence: without status migrainosus Intractability: not intractable Qualified Code(s): G43.009 - Migraine without aura, not intractable, without status migrainosus (3) Syncope: Code(s): R55 - Syncope and collapse Category: Medical Qualifiers: Syncope type: unspecified Qualified Code(s): R55 - Syncope and collapse (4) Altered mental status: Code(s): R41.82 - Altered mental status, unspecified Category: Medical Qualifiers: Altered mental status type: unspecified Qualified Code(s): R41.82 - Altered mental status, unspecified Plan June 2024 Head and cervical MRA: No hemodynamically significant stenosis within the bilateral carotid, [place], vertebral arteries. Continue ASA, statin, lisinopril, HCTZ- BP normotensive. Patient is encouraged to continue to abstain from alcohol use; however, he is advised that if he were to begin drinking in the future, he should avoid abrupt cessation of alcohol without medical supervision. Discussed ordering follow-up in-lab sleep study; however, he has declined. Continue to monitor the arm tremor Future considerations- sleep eval, cognitive tx. For concussive syndrome w/ migraine headache phenotype: For prevention: Continue OTC magnesium gummies. Continue lisinopril as ordered for HTN. Previous trials: riboflavin caused loose stools. For acute migraine treatment: May use Tylenol prn. May hold order for Ubrogepant (Ubrelvy) 100mg tab-As he has never started this. May continue OTC Tylenol or ibuprofen. Acute migraine treatment contraindications: All triptans and DHE due to HTN, HLD, history of lacunar infarcts. For episodes of transient AMS a/w urinary incontinence and postictal fatigue: No further episodes since stopping marijuana. Will monitor. Brain MRI- Moderate chronic white matter microangiopathy and mild generalized cerebral volume loss. Baseline and 72 hr ambulatory EEG- no epileptic activity observed. Reviewed cardiology eval- did not feel that these episodes were cardiogenic. Follow up in 6 months or sooner as needed. Coding Level of Care Code Est Pt Level 3 (87135) Diagnoses Concussion S06.0XAA Encounter type: sequela Migraine without aura and without status migrainosus, not intractable G43.009 Status migrainosus presence: without status migrainosus Intractability: not intractable Syncope, unspecified syncope type R55 Syncope type: unspecified Altered mental status, unspecified altered mental status type R41.82 Altered mental status type: unspecified
[2025-04-10 13:33] VITALS: BP 140/80; PULSE 92; O2SAT 94; BMI 31.3
--- OUTSIDE RECORDS SUMMARY | 2025-04-10 18:02 | XMS_ITS | Clinical Summary ---
Author Organization [facility] Address [address] [place] [address] Care Team Providers Care Manager Store Name Role Phone Parish Rowe MD Primary Care Provider [phone] Allergies No known active allergies Medications Medication Sig Dispensed Refills Start Date End Date Status amLODIPine (NORVASC) tablet 5 mg Take 5 mg by mouth daily. 5 03/28/2018 Active atorvastatin (LIPITOR) tablet 10 mg Take 10 mg by mouth daily. 5 03/18/2018 Active cilostazol (PLETAL) 100 MG tablet TAKE 1 TABLET 30 MINUTES BEFORE OR 2 HOURS AFTER BREAKFAST AND DINNER TWICE A DAY ORALLY 30 DAY(S) 6 04/04/2018 Active Diclofenac Sodium 1 % GEL topical PLACE 1 G ONTO THE SKIN DAILY. 2 01/23/2018 Active lisinopril-hydroCHLOR Othiazide (PRINZIDE,ZESTORETIC) tablet 20-25 mg Take 1 tablet by mouth daily. 5 03/18/2018 Active meloxicam (MOBIC) 15 MG tablet TAKE 1 TAB BY MOUTH DAILY FOR 60 DAYS. 1 03/01/2018 Active oxyCODONE-acetaminoph en (PERCOCET) 5-325 MG per tablet Take 1 tablet by mouth every 8 (eight) hours as needed. for pain 0 03/23/2018 Active aspirin 81 MG tablet Take 81 mg by mouth. 0 Active methocarbamol (ROBAXIN) 500 MG tablet Take 500 mg by mouth 3 (three) times a day. for 10 days 0 12/13/2018 Active Active Problems Problem Noted Date Diagnosed Date Arthritis of knee, left 10/19/2018 Arthritis of knee, right 07/19/2018 Family History Medical History Relation Name Comments Hypertension Father Heart disease Mother Relation Name Status Comments Father Mother Social History Tobacco Use Types Packs/Day Years Used Date Smoking Tobacco: Former Smokeless Tobacco: Never Sex and Gender Information Value Date Recorded Sex Assigned at Not on file Gender Identity Not on file Sexual Orientation Not on file Job Start Date Occupation Industry Not on file Not on file Not on file Last Filed Vital Signs Vital Sign Reading Time Taken Comments Blood Pressure - - Pulse - - Temperature - - Respiratory Rate - - Oxygen Saturation - - Inhaled Oxygen Concentration - - Weight 104.3 kg (230 lb) 11/19/2021 10:01 AM EDT Height 177.8 cm (5' 10 ) 11/19/2021 10:01 AM EDT Body Mass Index 33 11/19/2021 10:01 AM EDT Plan of Treatment Health Maintenance Due Date Last Done Comments Hepatitis C Screening 1955 COVID-19 Vaccine (#1) 01/18/1956 Depression Screening 1966 BMI Counseling 1972 Preventative Health Evaluation 1972 Colon Cancer Screening (Colonoscopy) 1999 Shingrix-Zoster Vaccine (1 of 2) 2004 Fall Risk Assessment 2019 Pneumococcal Vaccine (1 of 1 - PCV) 2019 DTap / Tdap / Td (2 - Td or Tdap) 04/10/2024 014 Influenza Vaccine (#1) 2025 RSV Adult > 60+ Yrs or Pregn ant (1 - 1-dose 75+ series) 2029 Hepatitis B Vaccines Aged Out No long er eligible based on patient's age to complete this topic RSV Ped < 20 months Aged Out No longe r eligible based on patient's age to complete this topic Care Teams Manager Store Relationship Specialty Start Date End Date Parish Rowe MD PCP - General Internal Medicine 03/30/18
--- OUTSIDE RECORDS SUMMARY | 2025-04-10 18:02 | XMS_ITS ---
Author Name [facility] Organization Unknown Care Team Organization Name Specialty Phone Email Start Date End Da te [facility] 03/05/2025 [facility] Parish Rowe Primary [facility] 05/24/2022 03/04/20 24
== END 2025-04-10 14:32 | disposition home or self-care (01) ==
LOC: HO.HSMS 13:27
PROVIDERS: PCP Internal Medicine; Visit Provider Nurse Practitioner Family
DX: S06.0XAA Concussion with loss of consciousness status unknown, initial encounter (principal); G43.009 Migraine without aura, not intractable, without status migrainosus; R55 Syncope and collapse; R41.82 Altered mental status, unspecified
CPT/HCPCS: 99213

== ENCOUNTER → 2025-04-10 13:27 | Outpatient (BNVA) | payer MEDICARE, SELFPAY | PROVIDERS: PCP Internal Medicine; Visit Provider Nurse Practitioner Family | DX: S06.0XAS Concussion with loss of consciousness status unknown, sequela (principal); G43.009 Migraine without aura, not intractable, without status migrainosus; R55 Syncope and collapse; R41.82 Altered mental status, unspecified; Z72.0 Tobacco use; F10.10 Alcohol abuse, uncomplicated | CPT/HCPCS: 99212 ==